=== PATIENT | male | born 1940 | race Caucasian/White ===

== ENCOUNTER 2017-07-28 18:04 | Emergency (ER) | payer MEDICARE, BC ==
[~2017-07-28] VITALS: Ht 182.9 cm; Wt 102.3 kg
[~2017-07-28 18:04] MED LIST: B-12 100 MCG; CEPHALEXIN500 M1 PO; FISH OIL500 MG; FLEX A MIN PO; GLUCOSAMINE & C1 CA1; LIPITOR 10MG10 MG PO; MULTI VITAMINS1 TAB PO; TOPROL XL 50MG50 MG PO; VIAGRA 25MG TAB25 MG; VITAMIN D31000 I1; VTAMINC250TA PO; [UNRECOGNIZED DRUG - OTHER] PO
[2017-07-28 18:06] VITALS: TEMP 99.7
[2017-07-28] MEDS ORDERED: TAMIFLU 75MG75 MG PO (19:18)
[2017-07-28 19:27] VITALS: BP 112/79; PULSE 94
== END 2017-07-28 19:36 | disposition home or self-care (01) ==
LOC: COL.ER 18:04
DX: J10.1 Influenza due to other identified influenza virus with other respiratory manifestations (principal); E78.5 Hyperlipidemia, unspecified

== ENCOUNTER → 2018-03-07 | Outpatient (CLI) | payer MEDICARE, BC ==
[~2018-03-07] MED LIST changes: +TAMIFLU 75MG75 MG PO
== END ==
LOC: COL.CARD 13:36
DX: R03.0 Elevated blood-pressure reading, without diagnosis of hypertension (principal)

== ENCOUNTER 2020-06-29 09:59 | Day surgery (SDC) | payer MEDICARE, BC ==
[~2020-06-29] VITALS: Ht 183 cm; Wt 105.5 kg
[2020-06-29] VITALS (10 sets, daily range): BP systolic 129–158; BP diastolic 78–91; PULSE 68–86; TEMP 98
[~2020-06-29 09:59] MED LIST changes: +DOXYCYCLINE HY100 MG PO
[2020-06-29] MEDS ORDERED: ASPIRIN 81M81 MG/TA2 PO (11:11)
[2020-06-29] MEDS ORDERED: IRON TABLETS325 MG PO (11:12)
[2020-06-29] MEDS ORDERED: FOLIC ACID0.4 MG PO (11:12)
[2020-06-29] MEDS ORDERED: OSTEO-BI-FLEX 21 TAB PO (11:13)
[2020-06-29] MEDS ORDERED: NATURAL E400 IU PO (11:13)
[2020-06-29 11:21] LABS: CALCIUM 9.1 mg/dL (8.4-10.2); CREATININE, serum 0.85 (0.66-1.25); POTASSIUM 4.2 mmol/L (3.4-5.0)
[2020-06-29 11:22] LABS: HEMATOCRIT 43.7 % (42.0-52.0); MEAN CELL VOLUME 87 fl (80.0-100.0); MEAN CORPUSCULAR HEMOGLOBIN 30 pg (27.0-31.0); MEAN CORPUSCULAR HGB CONC 34 g/dl (33.0-37.0); MEAN PLATELET VOLUME 8.6 fl (7.4-10.4); PLATELET COUNT 177 K/mm3 (130-400); RED BLOOD COUNT 5.01 M/mm3 (4.20-5.60); REDCELL DISTRIBUTION WIDTH-CV 12.8 % (11.5-14.5)
[2020-06-29 11:30] LABS: PROTHROMBIN TIME 11.5 SECONDS (9.7-12.8)
[2020-06-29 11:33] LABS: PARTIAL THROMBOPLASTIN TIME 31.1 SECONDS (26.0-37.0)
--- NOTE | 2020-06-29 11:37 | NUR ---
Initial visit; Patient thanked Head Charger for prayer prior to his surgical procedure. Head Charger offered God's blessings as well.
--- NOTE | 2020-06-29 12:10 | NUR ---
SEE MERGE FOR ALL MEDICATION ADMINISTRATION TIMES, INTRA AND POST SEDATION ASSESSMENT
--- NOTE | 2020-06-29 13:30 | NUR ---
Report from Bee MADERA. Transferred by bed from Transportation Consultant. Right Tband with 14 cc air, good pulses and cap refill < 3 secs noted. VSS. Denies pain and needs at this time
[2020-06-29] MEDS ORDERED: TOPROL XL 25MG25 MG PO (15:15)
--- NOTE | 2020-06-29 15:59 | NUR ---
Right Tband 14 cc released from band and dressing applied. INT discontinued intact.
--- NOTE | 2020-06-29 16:05 | NUR ---
Discharge instructions given. Transferred to private car by raffy
== END 2020-06-29 16:05 | disposition home or self-care (01) ==
LOC: COL.CAR 09:59
PROVIDERS: Internal Medicine Cardiovascular Disease
DX: I25.110 Atherosclerotic heart disease of native coronary artery with unstable angina pectoris (principal); I35.8 Other nonrheumatic aortic valve disorders; I35.0 Nonrheumatic aortic (valve) stenosis; I51.89 Other ill-defined heart diseases; E78.5 Hyperlipidemia, unspecified; R55 Syncope and collapse; E71.19 Other disorders of branched-chain amino-acid metabolism; M19.90 Unspecified osteoarthritis, unspecified site; Z79.82 Long term (current) use of aspirin; Z79.899 Other long term (current) drug therapy; Z87.891 Personal history of nicotine dependence; Z85.3 Personal history of malignant neoplasm of breast; Z85.828 Personal history of other malignant neoplasm of skin; Z20.822 Contact with and (suspected) exposure to COVID-19; Z82.49 Family history of ischemic heart disease and other diseases of the circulatory system; Z80.3 Family history of malignant neoplasm of breast
CPT/HCPCS: J1644; J2704; Q9967

== ENCOUNTER 2020-07-30 22:25 | Emergency (ER) | payer MEDICARE, BC ==
[~2020-07-30] VITALS: Ht 180.3 cm; Wt 104.5 kg
[2020-07-30 22:25] VITALS: TEMP 96.9
[~2020-07-30 22:25] MED LIST changes: +ASPIRIN 81M81 MG/TA2 PO; +FOLIC ACID0.4 MG PO; +IRON TABLETS325 MG PO; +NATURAL E400 IU PO; +OSTEO-BI-FLEX 21 TAB PO; +TOPROL XL 25MG25 MG PO
[2020-07-30 22:41] LABS: ARTERIAL BLOOD GAS pH 7.14 (7.35-7.45)
[2020-07-30 22:42] LABS: ARTERIAL BLD GAS O2 SATURATION 89.4 % (92-100); ARTERIAL BLOOD GAS BASE EXCESS -14.5 (-2-2); ARTERIAL BLOOD GAS PCO2 42.2 mmHg (35-45); ARTERIAL BLOOD GAS PO2 72.3 mmHg (80-100)
[2020-07-30 22:58] LABS: HEMATOCRIT 49.1 % (42.0-52.0); HEMOGLOBIN 16.1 g/dl (13.5-18.0); MEAN CELL VOLUME 92 fl (80.0-100.0); MEAN CORPUSCULAR HEMOGLOBIN 30 pg (27.0-31.0); MEAN CORPUSCULAR HGB CONC 33 g/dl (33.0-37.0); MEAN PLATELET VOLUME 8.5 fl (7.4-10.4); PLATELET COUNT 236 K/mm3 (130-400); RED BLOOD COUNT 5.32 M/mm3 (4.20-5.60); REDCELL DISTRIBUTION WIDTH-CV 13.2 % (11.5-14.5)
[2020-07-30 23:09] LABS: HEMATOCRIT 49.3 % (42.0-52.0); HEMOGLOBIN 16.2 g/dl (13.5-18.0); MEAN CELL VOLUME 93 fl (80.0-100.0); MEAN CORPUSCULAR HEMOGLOBIN 31 pg (27.0-31.0); MEAN CORPUSCULAR HGB CONC 33 g/dl (33.0-37.0); MEAN PLATELET VOLUME 8.7 fl (7.4-10.4); PLATELET COUNT 245 K/mm3 (130-400); RED BLOOD COUNT 5.32 M/mm3 (4.20-5.60); REDCELL DISTRIBUTION WIDTH-CV 13.2 % (11.5-14.5)
[2020-07-30 23:11] LABS: ALBUMIN 4.6 gm/dL (3.5-5.0); BILIRUBIN,TOTAL 1.3 mg/dL (0.0-1.0); C-REACTIVE PROTEIN 0.9 mg/dL (0.0-0.9); CREATININE, serum 1.19 (0.66-1.25); MAGNESIUM 2.3 mg/dL (1.6-2.3); POTASSIUM 3.3 mmol/L (3.4-5.0); TOTAL PROTEIN 7.8 gm/dL (6.4-8.2)
[2020-07-30 23:13] LABS: PROTHROMBIN TIME 10.9 SECONDS (9.7-12.8)
[2020-07-30 23:16] LABS: PARTIAL THROMBOPLASTIN TIME 27.9 SECONDS (26.0-37.0)
[2020-07-30 23:27] LABS: BAND 3 % (0-10); EOSINOPHIL 3 % (0-4); LYMPHOCYTE 48 % (20.0-51.0); NEUTROPHILS 41 % (42.0-75.2); PLATELET ESTIMATE NORMAL (NORMAL); TROPONIN-I 2.44 ng/mL (0.000-0.035)
[2020-07-31 01:30] VITALS: BP 158/100; PULSE 148
== END 2020-07-31 01:30 | disposition short-term general hospital (02) ==
LOC: COL.ER 22:25
PROVIDERS: Emergency Medicine
DX: J96.01 Acute respiratory failure with hypoxia (principal); I25.10 Atherosclerotic heart disease of native coronary artery without angina pectoris; I21.4 Non-ST elevation (NSTEMI) myocardial infarction; I24.8 Other forms of acute ischemic heart disease; I35.0 Nonrheumatic aortic (valve) stenosis; J81.0 Acute pulmonary edema; Z87.891 Personal history of nicotine dependence; Z79.82 Long term (current) use of aspirin
CPT/HCPCS: J1644; J1940; J3010